=== PATIENT | male | born 1970 | race Caucasian/White ===

== ENCOUNTER 2018-02-03 08:00 | Outpatient (CLI) | payer BC ==
[2018-02-03 12:22] LABS: BASOPHILS # (AUTO) 0.1 10^3/uL (0.0-0.1); BASOPHILS % (AUTO) 0.6 %; EOSINOPHILS # (AUTO) 0.1 10^3/uL (0.0-0.7); EOSINOPHILS % (AUTO) 0.9 %; HGB - HEMOGLOBIN 14.7 g/dL (14.0-18.0); LYMPHOCYTES # (AUTO) 0.6 10^3/uL (1.5-3.5); LYMPHOCYTES % (AUTO) 6.7 %; MEAN CORPUSCULAR HEMOGLOBIN 32.6 pg (27.0-31.0); MEAN CORPUSCULAR HGB CONC 34.6 g/dL (32.0-36.0); MEAN CORPUSCULAR VOLUME 94.4 fL (80.0-94.0); MEAN PLATELET VOLUME 9.1 fL (7.4-11.4); MONOCYTES # (AUTO) 0.7 10^3/uL (0.0-1.0); MONOCYTES % (AUTO) 6.9 %; NEUTROPHILS # (AUTO) 8.2 10^3/uL (1.5-6.6); NEUTROPHILS % (AUTO) 84.9 %; PLT - PLATELET COUNT 171 10^3/uL (130-450); RED CELL DISTRIBUTION WIDTH 13.8 % (12.0-15.0); WHITE BLOOD COUNT 9.6 x10^3/uL (4.8-10.8)
[2018-02-03 12:25] LABS: CALCIUM 9.2 mg/dL (8.5-10.3); CREATININE 0.9 mg/dL (0.6-1.2)
== END 2018-02-03 08:01 ==
LOC: LAB.WCP 08:00
PROVIDERS: ATTEND Family Medicine
DX: L03.90 Cellulitis, unspecified (principal)
CPT/HCPCS: 36415; 80048; 85025

== ENCOUNTER 2018-02-03 19:03 | Outpatient (CLI) | payer BC ==
--- NOTE | 2018-02-03 19:53 | Ultrasound Report ---
Reason: CELLULITIS, LEG PAIN RIGHT Procedure Date: 02/03/2018 Accession Number: [id number] / [id number] Procedure: US - Duplex Ext Veins Right CPT Code: FULL RESULT: EXAM: RIGHT LOWER EXTREMITY VENOUS ULTRASOUND EXAM DATE: 02/03/2018 07:46 PM. CLINICAL HISTORY: Cellulitis, pain COMPARISON: None. TECHNIQUE: Real-time sonographic vascular imaging was performed by the pega developer through the lower extremity utilizing both color-flow and Doppler spectral analysis. Multiple medicare sales representative static images were saved for review. FINDINGS: Common Femoral Vein (CFV): Normal. CFV-GSV Junction: Normal. Profunda Femoral Vein (PFV): Normal. Femoral Vein (FV) Prox: Normal. Femoral Vein (FV) Mid: Normal. Femoral Vein (FV) Dist: Normal. Popliteal Vein: Normal. Posterior Tibial Veins: Normal. Peroneal Veins: Normal. Contralateral Side CFV: Normal. Other: None. IMPRESSION: No evidence for deep venous thrombosis. RADIA
== END 2018-02-03 19:04 | disposition home or self-care (01) ==
LOC: DI 19:03
PROVIDERS: ATTEND Family Medicine
DX: L03.90 Cellulitis, unspecified (principal); M79.604 Pain in right leg

== ENCOUNTER 2018-02-06 11:44 | Emergency (ER) | payer BC ==
--- NOTE | 2018-02-06 13:17 | ED Physician Documentation ---
PD HPI SKIN - Stated complaint Stated Complaint: FOOT INFECTION PER MD - Chief complaint Chief Complaint: Wound - History obtained from History obtained from: Patient - History of Present Illness Timing - onset: How many days ago (10 days ago started with small local red area on dorsum of foot, thought it was bug bite or rub spot from his sandles. It continued to be red locally, but then it opened and drained some pus and the redness extended up leg. Seen by PMD last week and Rx Keflex. Patient says not improved, slightly worse. Seen by PMD again today and referred to the ER for " IV antibiotics".) Timing - duration: Days (10) Timing - details: Gradual onset, Still present Location: RLE Quality / character: Painful, Discolored, Swelling, Draining Contributing factors: Insect bite /sting (maybe). No: Exposed to medication, Exposed to food Similar symptoms before: Has not had sx before Recently seen: Clinic Review of Systems Constitutional: denies: Fever, Chills, Myalgias Throat: denies: Sore throat Cardiac: denies: Chest pain / pressure, Palpitations Respiratory: denies: Dyspnea, Cough GI: denies: Abdominal Pain, Nausea, Vomiting, Diarrhea PD PAST MEDICAL HISTORY - Past Medical History Cardiovascular: Hypertension Respiratory: None Neuro: None - Present Medications Home Medications: Ambulatory Orders Medication Instructions Recorded Confirmed ALPRAZolam [Alprazolam] 0.5 mg PO 02/06/18 Cephalexin [Keflex] 500 mg PO QID 02/06/18 02/06/18 Doxycycline Monohydrate 100 mg PO BID #20 tablet 02/06/18 HYDROcod/ACETAM 5/325 [Colon 5/325] 1 tab PO Q6H PRN #15 tablet 02/06/18 Metoprolol Tartrate 50 mg PO DAILY 02/06/18 02/06/18 amLODIPine [Norvasc] 5 mg PO DAILY 02/06/18 02/06/18 - Allergies Allergies/Adverse Reactions: Allergies Allergy/AdvReac Type Severity Reaction Status Date / Time No Known Drug Allergies Allergy Verified 02/06/18 11:59 PD ED PE NORMAL - Vitals Vital signs reviewed: Yes - General General: Alert and oriented X 3, No acute distress, Well developed/nourished - Neck Neck: Supple, no meningeal sign, No adenopathy - Cardiac Cardiac: RRR, No murmur - Respiratory Respiratory: Clear bilaterally - Abdomen Abdomen: Soft, Non tender - Derm Derm: Normal color, Warm and dry - Extremities Extremities: No calf tenderness / cord, Other (right dorsum of foot with superficial ulceration of skin in small area. No underlying fluctuance. Surrounding redness of foot dorsally and then up the anterior ankle and lower leg. ) Results - Vitals Vitals: Oxygen O2 Source Room air PD MEDICAL DECISION MAKING - ED course Complexity details: considered differential (has had strep coverage with keflex but not improving. Has abscess with cellulitis, and I presume more likely staph. ), d/w patient - Sepsis Event Vital Signs: Oxygen O2 Source Room air Departure - Departure Disposition: Home, Self Care Clinical Impression: Cellulitis and abscess of foot Condition: Stable Record reviewed to determine appropriate education?: Yes Instructions: ED Staph Infec Abx Tx Only Follow-Up: Lizandro Bernardo MD [Primary Care Provider] - Prescriptions: Doxycycline Monohydrate 100 mg PO BID #20 tablet HYDROcod/ACETAM 5/325 [Colon 5/325] 1 tab PO Q6H PRN #15 tablet PRN Reason: Pain Comments: Elevate and rest the leg often to reduce swelling although much of the swelling is just from the infection. Use anti-inflammatories such as naproxen twice daily. add Tylenol or hydrocodone as needed for pain. Add doxycycline antibiotic twice daily for 7-10 days until all better. I think the infection has not improved mostly from the antibiotic not being on target as opposed to not being "strong enough". This more likely is a staph infection and the doxycycline should help it better. Discharge Date/Time: 02/06/18 17:21
[2018-02-06] MEDS ORDERED: cefTRIAXone 1 GM in SODIUM CHLORIDE 0.9% MINIBAG 100 ML IV STA (13:45)
[2018-02-06] MEDS ORDERED: VANCOMYCIN INJ 1 GM in SODIUM CHLORIDE 0.9% 500 ML IV STA (13:45)
[2018-02-06 16:54] VITALS: BP 134/78
== END 2018-02-06 17:21 | disposition home or self-care (01) ==
LOC: ED 11:44
DX: L03.115 Cellulitis of right lower limb (principal); L02.611 Cutaneous abscess of right foot; I10 Essential (primary) hypertension
CPT/HCPCS: 96365; 96366; 96367; 99283; J3370

== ENCOUNTER 2020-05-29 17:14 | Outpatient (CLI) | payer BC | END 2020-05-29 17:15 | disposition home or self-care (01) | LOC: COV 17:14 | PROVIDERS: ATTEND Family Medicine | DX: R50.9 Fever, unspecified (principal); Z20.828 Contact with and (suspected) exposure to other viral communicable diseases; R05 Cough; R06.02 Shortness of breath; R09.81 Nasal congestion; M79.10 Myalgia, unspecified site; R53.83 Other fatigue; J02.9 Acute pharyngitis, unspecified; R19.7 Diarrhea, unspecified; R11.2 Nausea with vomiting, unspecified ==

== ENCOUNTER 2020-06-10 10:48 | Outpatient (CLI) | payer BC ==
--- NOTE | 2020-06-10 11:24 | XRAY Report ---
PROCEDURE: Chest 2 View X-Ray INDICATIONS: TOXIC EFFECT OF GASES, FUMES AND VAPORS ACCIDENTAL TECHNIQUE: 2 view(s) of the chest. COMPARISON: None. FINDINGS: Surgical changes and devices: Low fusion at cervicothoracic junction. Lungs and pleura: No pleural effusions or pneumothorax. Lungs are clear. Mediastinum: Mediastinal contours are normal. Heart size is normal. Bones and chest wall: No suspicious bony abnormalities. Soft tissues appear unremarkable. IMPRESSION: No acute cardiopulmonary disease. Reviewed by: Alondra Marshall MD on 06/10/2020 11:[address] [facility] Approved by: Alondra Marshall MD on 06/10/2020 11:[address] [facility] Station ID: [id number]
== END 2020-06-10 23:59 | disposition home or self-care (01) ==
LOC: DI.WCP 10:48
PROVIDERS: ATTEND Family Medicine
DX: T59.891A Toxic effect of other specified gases, fumes and vapors, accidental (unintentional), initial encounter (principal)
CPT/HCPCS: 36415; 80053; 80061; 83721; 84153; 84443; 85025

== ENCOUNTER 2020-09-29 08:00 | Outpatient (CLI) | payer BC ==
[2020-09-29 11:52] LABS: BASOPHILS # (AUTO) 0.1 10^3/uL (0.0-0.1); BASOPHILS % (AUTO) 1.2 %; EOSINOPHILS # (AUTO) 0.2 10^3/uL (0.0-0.7); EOSINOPHILS % (AUTO) 3.5 %; HCT - HEMATOCRIT 48.5 % (42.0-52.0); HGB - HEMOGLOBIN 15.9 g/dL (14.0-18.0); LYMPHOCYTES # (AUTO) 1.6 10^3/uL (1.5-3.5); LYMPHOCYTES % (AUTO) 38.4 %; MEAN CORPUSCULAR HGB CONC 32.8 g/dL (32.0-36.0); MEAN CORPUSCULAR VOLUME 94.5 fL (80.0-94.0); MEAN PLATELET VOLUME 10.6 fL (7.4-11.4); MONOCYTES # (AUTO) 0.4 10^3/uL (0.0-1.0); MONOCYTES % (AUTO) 9.2 %; NEUTROPHILS % (AUTO) 47.5 %; PLT - PLATELET COUNT 255 10^3/uL (130-450); RED BLOOD COUNT 5.13 10^6/uL (4.70-6.10); WHITE BLOOD COUNT 4.3 x10^3/uL (4.8-10.8)
[2020-09-29 13:19] LABS: THYROID STIMULATING HORMONE 2.46 uIU/mL (0.34-5.60)
[2020-09-29 13:28] LABS: ALBUMIN 4.6 g/dL (3.2-5.5); ALBUMIN/GLOBULIN RATIO 1.5 (1.0-2.2); ALKALINE PHOSPHATASE 61 IU/L (42-121); ALT ALANINE AMINOTRANSFERASE 54 IU/L (10-60); AST ASPARTATE AMINOTRANSFERASE 31 IU/L (10-42); BILIRUBIN,TOTAL 0.8 mg/dL (0.2-1.0); BUN - BLOOD UREA NITROGEN 12 mg/dL (6-20); CALCIUM 9.4 mg/dL (8.5-10.3); CARBON DIOXIDE - CO2 26 mmol/L (21-32); CHLORIDE 107 mmol/L (101-111); CHOL/HDL RATIO 4.1 (<5.0); CHOLESTEROL 251 mg/dL; CREATININE 0.8 mg/dL (0.6-1.2); GFR - MDRD 102 (>89); GLUCOSE 109 mg/dL (70-100); HDL CHOLESTEROL 61 mg/dL; LDL CHOLESTEROL,CALCULATED 168 mg/dL; LDL/HDL RATIO 2.8 (<3.6); POTASSIUM 4.2 mmol/L (3.5-5.0); SODIUM 142 mmol/L (135-145); TOTAL PROTEIN 7.6 g/dL (6.7-8.2); TRIGLYCERIDES 112 mg/dL; VLDL CHOLESTEROL 22 mg/dL
== END 2020-09-29 23:59 | disposition home or self-care (01) ==
LOC: LAB.WCP 08:00
PROVIDERS: ATTEND Nurse Practitioner Family
DX: Z00.00 Encounter for general adult medical examination without abnormal findings (principal); I10 Essential (primary) hypertension; E78.5 Hyperlipidemia, unspecified; Z12.5 Encounter for screening for malignant neoplasm of prostate; F32.9 Major depressive disorder, single episode, unspecified
CPT/HCPCS: 36415; 80053; 80061; 83721; 84153; 84443; 85025